=== PATIENT | male | born 1985 | race American Indian/Alaskan Native ===

== ENCOUNTER 2016-11-12 10:15 | Emergency (ER) | payer OTHER ==
[2016-11-12 10:28] VITALS: BP 122/82
--- NOTE | 2016-11-12 13:18 | Emergency Department Report ---
ED ENT HPI - General Chief complaint: Dental/Oral Stated complaint: ORAL ABCESS Time Seen by Provider: 11/12/16 13:13 Source: patient Mode of arrival: Ambulatory Limitations: No Limitations - History of Present Illness Initial comments: Pt c/o R upper toothache x 2 days. PT states his teeth have been sensitive to hot and cold for awhile but he did not pay too much attention to it. PT states he woke up today and his gum is swollen. PT has not taken anything for pain today. PT states he tried using Oragel but no improvement in pain. Pt states his last dental appointment was about 6 months ago for an extraction MD complaint: tooth pain -: Gradual, days(s) Severity: severe Severity scale (0 -10): 10 Quality: sharp, constant, other (throbbing ) Consistency: constant Improves with: none Worsens with: eating Associated Symptoms: gum swelling, toothache. denies: fever, pain with swallowing, sore throat - Related Data Previous Rx's Medication Instructions Recorded Last Taken Type Acetaminophen/Codeine [Tylenol #3] 1 tab PO Q6H PRN #12 tab 11/12/16 Unknown Rx Clindamycin [Clindamycin CAP] 300 mg PO Q8H #30 cap 11/12/16 Unknown Rx Ibuprofen [Motrin] 600 mg PO Q8H PRN #15 tablet 11/12/16 Unknown Rx Allergies Allergy/AdvReac Type Severity Reaction Status Date / Time No Known Allergies Allergy Verified 11/12/16 10:24 ED Dental HPI - General Chief complaint: Dental/Oral Stated complaint: ORAL ABCESS Time Seen by Provider: 11/12/16 13:13 Source: patient Mode of arrival: Ambulatory Limitations: No Limitations - Related Data Previous Rx's Medication Instructions Recorded Last Taken Type Acetaminophen/Codeine [Tylenol #3] 1 tab PO Q6H PRN #12 tab 11/12/16 Unknown Rx Clindamycin [Clindamycin CAP] 300 mg PO Q8H #30 cap 11/12/16 Unknown Rx Ibuprofen [Motrin] 600 mg PO Q8H PRN #15 tablet 11/12/16 Unknown Rx Allergies Allergy/AdvReac Type Severity Reaction Status Date / Time No Known Allergies Allergy Verified 11/12/16 10:24 ED Review of Systems ROS: Stated complaint: ORAL ABCESS Other details as noted in HPI Comment: All other systems reviewed and negative Constitutional: denies: chills, fever ENT: dental pain Gastrointestinal: denies: nausea, vomiting ED Past Medical Hx - Past Medical History Previous Medical History?: Yes Hx Asthma: Yes - Social History Smoking Status: Current Some Day Smoker Substance Use Type: Alcohol - Medications Home Medications: Home Medications Medication Instructions Recorded Confirmed Last Taken Type Acetaminophen/Codeine [Tylenol #3] 1 tab PO Q6H PRN #12 tab 11/12/16 Unknown Rx Clindamycin [Clindamycin CAP] 300 mg PO Q8H #30 cap 11/12/16 Unknown Rx Ibuprofen [Motrin] 600 mg PO Q8H PRN #15 tablet 11/12/16 Unknown Rx ED Physical Exam - General Limitations: No Limitations General appearance: alert, in no apparent distress - Head Head exam: Present: atraumatic, normocephalic, normal inspection - Eye Eye exam: Present: normal appearance, PERRL, EOMI. Absent: conjunctival injection - ENT ENT exam: Present: normal orophraynx, mucous membranes moist, TM's normal bilaterally, normal external ear exam - Expanded ENT Exam Expanded Mouth exam: Absent: drooling, trismus Teeth exam: Present: dental caries, dental tenderness # 1 - Dental Tenderness (small preapical abscess noted) Throat exam: Positive: normal inspection, tonsillar exudate. Negative: tonsillar erythema, tonsillomegaly - Neck Neck exam: Present: normal inspection, full ROM. Absent: tenderness, lymphadenopathy - Respiratory Respiratory exam: Present: normal lung sounds bilaterally. Absent: respiratory distress, wheezes, rales, rhonchi - Cardiovascular Cardiovascular Exam: Present: regular rate, normal rhythm, normal heart sounds - Extremities Exam Extremities exam: Present: normal inspection, full ROM, normal capillary refill - Back Exam Back exam: Present: normal inspection, full ROM. Absent: tenderness - Neurological Exam Neurological exam: Present: alert, oriented X3, normal gait - Psychiatric Psychiatric exam: Present: normal affect, normal mood - Skin Skin exam: Present: warm, dry, intact, normal color ED Course Vital Signs 11/12/16 10:24 Temperature 98.6 F Pulse Rate 70 Respiratory 18 Rate Blood Pressure 122/82 O2 Sat by Pulse 100 Oximetry - Reevaluation(s) Reevaluation #1: 11/12/16 13:23 PT aware of dx and plan of care. - Pulse Oximetry Interpretation Digit-Finger Initial Pulse Oximetry Readin Actions Taken: none ED Medical Decision Making - Differential Diagnosis toothache dental abscess Critical Care Time: No Critical care attestation.: If time is entered above; I have spent that time in minutes in the direct care of this critically ill patient, excluding procedure time. ED Disposition Clinical Impression: Dental abscess Disposition: TO HOME OR SELFCARE Is pt being admited?: No Does the pt Need Aspirin: No Condition: Stable Instructions: Dental Abscess (ED) Additional Instructions: Good oral hygiene Swish and spit with warm salt water at least 4 times a day finish all of your antibiotics Follow up with Dentist in 3-5 days Return to the ED if worsening (fevers, chills, nausea, vomiting, unable to open your mouth , drooling) No driving or alcohol after taking Tylenol #3 for pain Try treating your pain with Motrin first Referrals: PRIMARY CAREMD [Primary Care Provider] - 3-5 Days MAEVE SNYDER MD [Staff Physician] - 3-5 Days [facility] [Outside] - 3-5 Days Time of Disposition: 13:28
[2016-11-12] MEDS ORDERED: CLEOCIN PO ONE (13:28)
[2016-11-12] MEDS ORDERED: NORCO 5/325 PO ONE (13:28)
== END 2016-11-12 13:40 | disposition home or self-care (01) ==
LOC: ED 10:15
DX: K04.7 Periapical abscess without sinus (principal); F17.210 Nicotine dependence, cigarettes, uncomplicated; J45.909 Unspecified asthma, uncomplicated
CPT/HCPCS: 99282